=== PATIENT | male | born 1945 | race Caucasian/White ===

== ENCOUNTER 2024-05-28 11:30 | Emergency (ER) | payer MEDICARE, BC, SELFPAY ==
[2024-05-28 11:46] VITALS: BP 114/62; PULSE 73; RESP 20; TEMP 36.8; O2SAT 98
--- NOTE | 2024-05-28 12:11 | ED.FALL ---
HPI - Fall General Chief Complaint: Fall Stated Complaint: Fall/Under eye wound Time Seen by Provider: 05/28/24 12:11 Source: patient and family Mode of arrival: ambulatory Limitations: no limitations History of Present Illness HPI Narrative: 78-year-old male presents with concern for fall today. Reports he fell down 4 concrete steps and landed on his face 1st on each step. He reports he has a large bruise under his left eye with some bleeding. He reports pain and pressure under the left eye. He reports some mild left wrist pain and left rib pain. Patient is currently on Eliquis. He had a recent open heart surgery. He also had a subsequent infection from that surgery. MD complaint: fall Related Data Home Medications Medication Instructions Recorded Confirmed Osteo Bi-Flex 05/10/24 amiodarone 200 mg tablet 200 mg PO DAILY 05/10/24 05/28/24 apixaban 5 mg tablet (Eliquis) 5 mg PO BID 05/10/24 05/28/24 aspirin 81 mg capsule 81 mg PO DAILY 05/10/24 05/28/24 atorvastatin 80 mg tablet 80 mg PO HS 05/10/24 05/28/24 ezetimibe 10 mg tablet 10 mg PO DAILY 05/10/24 05/28/24 furosemide 40 mg tablet 40 mg PO DAILY 05/10/24 05/28/24 levothyroxine 150 mcg tablet 150 mcg PO DAILY 05/10/24 05/28/24 metformin 500 mg tablet 500 mg PO BID 05/10/24 05/28/24 metoprolol tartrate 25 mg tablet 25 mg PO QHS 05/10/24 05/28/24 metoprolol tartrate 50 mg tablet 50 mg PO QNOON 05/10/24 05/28/24 potassium chloride 20 mEq 20 meq PO DAILY 05/10/24 05/28/24 tablet,extended release Allergies Allergy/AdvReac Type Severity Reaction Status Date / Time grapefruit AdvReac Other Verified 05/28/24 11:53 Review of Systems Review of Systems: CONSTITUTIONAL: Denies malaise, chills, sweats, or fever. EYES: Denies visual changes. Reports left eye pain CARDIOVASCULAR: Denies chest pain, palpitations, or edema. RESPIRATORY: Denies cough or dyspnea. GASTROINTESTINAL: Denies nausea, vomiting SKIN: Reports some mild scrapes. Reports swelling, bruising, bleeding under the left eye MUSCULOSKELETAL: Reports left wrist and rib pain NEUROLOGIC: Denies numbness, weakness, or headache. All systems reviewed & are unremarkable except as noted in HPI and below PMFSH Comments At time of signature, agree with nursing past medical, surgical, social and family history. There is no relevant family history pertinent to the presenting complaint Exam Narrative: GENERAL: Nontoxic-appearing, well-nourished, and in no acute distress. HEAD: Normocephalic, atraumatic. EYES: PERRLA, sclera clear, and EOMI. No nystagmus. ENT: Nares clear,. Mucous membranes moist. NECK: Supple. CHEST: No respiratory distress. Speaks in full sentences. HEART: Regular rate and rhythm. No murmur heard. Normal peripheral pulses. EXTREMITIES: Grossly Normal range of motion. Grossly Normal strength and sensation. SKIN: Warm, dry. NEURO: Alert and oriented x3. No focal deficits. Cranial nerves II through XII grossly intact PSYCH: Normal mood and affect Course Course Emergency Course: Patient is aware of, understands and agrees to be transferred to the emergency room. Portions of this record may have been created with voice recognition software Level of Care: Express Care Visit Vital Signs Vital signs: Vital Signs Temperature 98.2 F 05/28/24 11:46 Pulse Rate 73 05/28/24 11:46 Respiratory Rate 20 05/28/24 11:46 Blood Pressure 114/62 05/28/24 11:46 Pulse Oximetry 98 05/28/24 11:46 Oxygen Delivery Room Air 05/28/24 11:46 Temperature 98.2 F 05/28/24 11:46 Pulse Rate 73 05/28/24 11:46 Respiratory Rate 20 05/28/24 11:46 Blood Pressure 114/62 05/28/24 11:46 Pulse Oximetry 98 05/28/24 11:46 Oxygen Delivery Room Air 05/28/24 11:46 Reviewed. Transfer Transfered to: [facility] ([place]) Transfer rationale: Head/eye injury Accepting physician: Chandan MDM - Fall MDM Narrative Medical decision making narrative: CCHR score: Sig
== END 2024-05-28 12:31 | disposition short-term general hospital (02) ==
PROVIDERS: Emergency Provider Nurse Practitioner; PCP Internal Medicine
DX: S09.90XA Unspecified injury of head, initial encounter (principal); W10.9XXA Fall (on) (from) unspecified stairs and steps, initial encounter; Z79.01 Long term (current) use of anticoagulants; Z79.82 Long term (current) use of aspirin; I48.0 Paroxysmal atrial fibrillation; I25.10 Atherosclerotic heart disease of native coronary artery without angina pectoris; R01.1 Cardiac murmur, unspecified; E78.00 Pure hypercholesterolemia, unspecified; G47.30 Sleep apnea, unspecified; Z91.199 Patient's noncompliance with other medical treatment and regimen due to unspecified reason; I13.0 Hypertensive heart and chronic kidney disease with heart failure and stage 1 through stage 4 chronic kidney disease, or unspecified chronic kidney disease; E11.22 Type 2 diabetes mellitus with diabetic chronic kidney disease; N18.9 Chronic kidney disease, unspecified; I50.9 Heart failure, unspecified; M17.0 Bilateral primary osteoarthritis of knee; Z85.46 Personal history of malignant neoplasm of prostate; Z85.820 Personal history of malignant melanoma of skin; Z92.3 Personal history of irradiation; Z95.2 Presence of prosthetic heart valve
CPT/HCPCS: 99212; G0463

== ENCOUNTER 2024-08-09 11:00 | Outpatient (RCR) | payer MEDICARE, BC, SELFPAY ==
--- NOTE | 2024-07-27 10:59 | PCCPR ---
Patient has been on medical leave of absence after fall at home. Spoke to patient via phone this morning, states he is ready to come back to rehab, that he met with Dr. Param Ingram last week and everything looks good. Call placed to Dr. Ingram's office, spoke to nurse Sravani, she will consult with Dr. Ingram and send medical release via fax.
--- NOTE | 2024-08-13 10:35 | PCCPR ---
Pt called to report that he is now having trouble with an ankle, and his wrist is starting to hurt again. States he doesn't think he will be able to make it back to finish the program and would like to be discharged at this time.
== END 2024-08-13 10:37 | disposition home or self-care (01) ==
PROVIDERS: PCP Internal Medicine
DX: Z95.2 Presence of prosthetic heart valve (principal)
CPT/HCPCS: 93798